=== PATIENT | male | born 1950 | race Caucasian/White ===

== ENCOUNTER 2021-08-19 08:56 | Day surgery (SDC) | payer OTHER ==
[~2021-08-19] VITALS: Ht 167.6 cm; Wt 93.4 kg
[2021-08-19] MEDS ORDERED: fentaNYL citrate 0.05 MG/ML VIAL ONE (09:30)
[2021-08-19] MEDS ORDERED: diphenhydrAMINE 50 MG/ML VIAL ONE (09:30)
[2021-08-19] MEDS ORDERED: MIDAZOLAM 2 MG/2 ML VIAL ONE ×2 (09:31→09:32)
[2021-08-19] MEDS ORDERED: fentaNYL citrate 0.05 MG/ML VIAL IVP ONE (17:45)
== END 2021-08-19 11:21 | disposition home or self-care (01) ==
LOC: MOR 08:56 → MMU 08:57 → MOR 11:21
PROVIDERS: ATTEND Internal Medicine Gastroenterology
DX: K92.1 Melena (principal); K59.00 Constipation, unspecified; K62.1 Rectal polyp; I10 Essential (primary) hypertension; K29.50 Unspecified chronic gastritis without bleeding; E78.5 Hyperlipidemia, unspecified; Z79.82 Long term (current) use of aspirin; Z79.899 Other long term (current) drug therapy
CPT/HCPCS: 43239; 45380; 45385; 87426; 88305; 88312; 88313; 88342; J2250; J3010; J7030; J1200